=== PATIENT | female | born 1995 | race Caucasian/White ===

== ENCOUNTER 2017-11-06 18:06 | Emergency (ER) | payer OTHER ==
[~2017-11-06] VITALS: Ht 162.6 cm; Wt 54.4 kg
[~2017-11-06 18:06] MED LIST: ACEBUTCAFT PO; AMIT10 PO; BUPR150ER PO; Bactrim Ds Tab1 EACH PO; CEPH500 PO; CHOL10002 PO; CYCL10 PO; Cleocin HCl300 MG PO; Crutch1 EACH MISC; Esgic Tablet1 EACH PO; Flonase 0.05% N16 GM; HYDACE10B PO; HYDACE5325 PO; HYDR1TAB94 PO; IBUP400 PO; IBUP600 PO; IBUP800 PO; Imitrex100 MG PO; METR500 PO; Naprosyn500 MG PO; Norco 5-325 Ta1 EACH PO; ONDA4 PO; PROC10 PO; PROM25 PO; PSEU120ER PO; Percocet 5-3251 EACH PO; SERT25 PO; SULTRIDS PO; TOPI50 PO; Veetids 500500 MG PO; Zofran8 MG PO
[2017-11-06] MEDS ORDERED: IBUP800 PO (20:38)
[2017-11-06] MEDS ORDERED: Pseudoephedrine30 MG PO (20:38)
== END 2017-11-06 20:43 | disposition home or self-care (01) ==
LOC: ER 18:06
DX: H92.01 Otalgia, right ear (principal); F17.200 Nicotine dependence, unspecified, uncomplicated; Z88.8 Allergy status to other drugs, medicaments and biological substances; Z91.018 Allergy to other foods; Z88.1 Allergy status to other antibiotic agents; Z88.5 Allergy status to narcotic agent
CPT/HCPCS: 87081; 87430